=== PATIENT | female | born 1965 | race Two or more races ===

== ENCOUNTER → 2017-06-29 | Outpatient (CLI) | payer BC ==
[2017-06-29 15:56] LABS: THYROID STIMULATING HORMONE 1.77 uIU/ml (0.34-5.60)
[2017-06-29 16:02] LABS: FREE THYROXIN (T4) 0.83 ng/dL (0.58-1.64)
== END | disposition home or self-care (01) ==
LOC: CLAB 14:09
PROVIDERS: Otolaryngology
DX: D34 Benign neoplasm of thyroid gland (principal); E03.9 Hypothyroidism, unspecified
CPT/HCPCS: 36415; 84439; 84443; 84480